=== PATIENT | female | born 1995 | race Caucasian/White ===

== ENCOUNTER 2017-10-14 23:01 | Emergency (ER) | payer MEDICAID, SELFPAY ==
[2017-10-14 23:02] VITALS: BP 119/70; PULSE 88; RESP 17; TEMP 36.4; O2SAT 99; BMI 17.3
--- NOTE | 2017-10-15 00:26 | ED.VISSUMM ---
- ER Visit Summary Date of Service: 10/15/17 Chief Complaint: Missed menses History of Present Illness: The patient is a sexually active 22 F states that her menstrual cycles are usually regular, but she missed her cycle 2 weeks ago and wants to make sure she is not . She has done for urine test at home that were all negative, but is concerned because false negative urine test runs in the family. She is having a little queasiness in her abdomen but no pelvic pain. She drinks water frequently and urinates appropriately, which is somewhat frequently for her. She denies any dysuria or hematuria, no fevers or nausea or vomiting. No low back pain. She is a . She also states she has been having her control switch to multiple different types lately. Physical Examination: Well-appearing in no acute distress with normal vital signs. Abdomen soft nontender nondistended with normal bowel sounds present. No CVA tenderness. No tachycardia. Test Results: Serum test negative Emergency Department Course and Treatment: Patient is reassured as she is not . Encouraged to follow-up with her residence counselor. Symptoms may be related to her recent oral contraceptive pill changes. 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 It may contain incorrect words, spelling, and punctuation that were not noted in review of the chart prior to signing ED Disposition - Plan for ED Patient: Disposition: Home or Assisted Living Chief Complaint: Instructions: ED Amenorrhea Referrals: Nirmala Hyde MD [Primary Care Provider] - Tyler Fraser MD [STAFF PHYSICIAN] - As Needed
[2017-10-15 01:23] LABS: Pregnancy, Serum, hCG Quali. NEGATIVE Negative (0-9 Nonpreg)
== END 2017-10-15 01:56 | disposition home or self-care (01) ==
PROVIDERS: Emergency Provider Emergency Medicine; Family Provider Pediatrics; PCP Pediatrics
DX: N91.2 Amenorrhea, unspecified (principal); R11.0 Nausea; Z72.0 Tobacco use
CPT/HCPCS: 84703; 99282

== ENCOUNTER 2017-10-18 23:07 | Emergency (ER) | payer MEDICAID, SELFPAY ==
[2017-10-18 23:10] VITALS: BP 133/88; PULSE 92; RESP 15; TEMP 37; O2SAT 96; BMI 18.7
--- NOTE | 2017-10-18 23:19 | ED.VISSUMM ---
- ER Visit Summary Date of Service: 10/18/17 Chief Complaint: Abdominal pain History of Present Illness: The patient is a 22 F who has had abdominal pain that started today. She describes sharp pains in her epigastric area. It radiates to her back. She said associated nausea without vomiting. Denies any diarrhea or constipation. No dysuria currently but she did have this 2 weeks ago. No fevers. She has been trying ibuprofen at home without any relief. Denies any previous abdominal surgeries. Physical Examination: Vital signs reviewed. HEENT exam unremarkable. Heart is regular rate and rhythm without murmurs. Lungs are clear to auscultation. Abdomen is soft with tenderness in the epigastric area. There is no guarding or rebound tenderness. Extremities reveal no edema. Skin exam normal. Neurologic exam normal. Test Results: Laboratory studies are all normal. Urinalysis normal. test from a couple of days ago was also negative Emergency Department Course and Treatment: Patient received a GI cocktail which did not help her pain. Patient will be treated with morphine. She likely has some gastritis. No evidence of any gallbladder or pancreatic disease. Patient will be discharged with Prilosec to take at home. She will follow-up with her PCP Treatment Plan: [] Disposition: Discharge Impression: Epigastric abdominal pain This note was generated with [employer] dictation software. It may contain incorrect words, spelling, and punctuation that were not noted in review of the chart prior to signing ED Disposition - Plan for ED Patient: Chief Complaint: Abd Pain Referrals: Nirmala Hyde MD [Primary Care Provider] -
--- NOTE | 2017-10-18 23:37 | NURSING ---
DR. GUTIERREZ MADE AWARE BY THIS NURSE PATIENT STATING THAT HER LEFT UPPER CHEST IS SORE WHEN PUSHES ON IT.
[2017-10-18 23:40] LABS: Bacteria 0 SEEN /hpf (None Seen); Mucous, Urine 0 SEEN /hpf (<or=2+); Red Blood Cells-Urine 0 SEEN /hpf (0-5); White Blood Cells 0 SEEN /hpf (0-5)
[2017-10-18 23:43] LABS: Absolute Lymphocyte Count 3.02 X10^3/ul (0.83-4.51); Absolute Neutrophil Count 6.6 X10^3/uL (2.0-7.7); Basophil# 0.05 X10^3/uL; Basophil% 0.5 % (0-1); Eosinophil# 0.15 X10^3/uL; Eosinophils% 1.4 % (0-5); Hematocrit 40.1 % (37-47); Hemoglobin 13.7 g/dl (12.0-15.0); Lymphocyte # 3.02 X10^3/ul (4.0); Lymphocyte % 27.8 % (19-41); Mean Corp Hgb Conc 34.2 g/gl (32-36); Mean Corpuscular Hgb 30.6 pg (27.0-32.0); Mean Corpuscular Volume 89.7 fL (81-99); Mean Platelet Vol. 9.9 fl (6.2-12.0); Monocyte# 1.02 X10^3/uL; Monocyte% 9.4 % (0-10); Neutrophil % 60.6 % (47-70); POSITIVE COUNT NO; POSITIVE DIFFERENTIAL NO; POSITIVE MORPHOLOGY NO; Platelet Count 256 K/mm3 (150-450); RBC Distribution Width CV 11.9 % (11.6-14.6); RBC Distribution Width SD 38.1 fl (35.1-43.9); Red Blood Count 4.47 M/mm3 (4.2-5.4); White Blood Count 10.9 K/mm3 (4.4-11.0)
[2017-10-18 23:52] LABS: Color, Urine Straw (Yellow); Glucose, Dipstick Normal (Normal); Ketone-Dipstick Negative (Negative); Leukocyte Esterase-Dipstick Negative /ul (Negative); Nitrite-Dipstick Negative (Negative); Occult Blood-Urine 10 /ul (Negative); Protein-Dipstick Negative (Negative); Specific Gravity, Urine 1.005 (1.002-1.030); Urine Bilirubin Dipstick Negative (Negative); Urine Clarity Clear (Clear); Urine Urobilinogen Normal (Normal)
[2017-10-19 00:02] LABS: Squamous Epithelial Cells - UA 0-5 SEEN /hpf (5-10)
[2017-10-19 00:08] LABS: ALB/GLOB Ratio 1.1 RATIO (0.9-2.4); AST(SGOT) 13 U/L (15-37); Alanine Aminotransfer ALT/SGPT 14 U/L (13-56); Albumin, Serum 3.9 g/dL (3.2-5.0); Alkaline Phosphatase 60 U/L (45-117); Anion Gap 10 (5-15); BUN 9 mg/dL (7-18); BUN/Creat Ratio 10.9 RATIO (10-20); Calcium,Total 8.8 mg/dL (8.5-10.1); Chloride 105 mmol/L (98-107); Creatinine, Serum 0.83 mg/dL (0.55-1.02); EST Glomerular Filtration Rate 93 mL/min (>60); Est Glom Filt Rate - Afr Amer 113 mL/min (>60); Globulin 3.6 g/dL (2.2-4.2); Glucose 87 mg/dL (74-106); Lipase 259 U/L (73-393); Potassium 3.7 mmol/L (3.5-5.1); Protein, Total 7.5 g/dL (6.4-8.2); Sodium Level 142 mmol/L (136-145)
--- NOTE | 2017-10-19 00:15 | ED.DEP ---
ED Disposition - Plan for ED Patient: Disposition: Home or Assisted Living Chief Complaint: Abd Pain Instructions: ED Abdominal Pain Unkn Cause Prescriptions: Omeprazole [Prilosec] 20 mg PO DAILY #30 cap Referrals: Nirmala Hyde MD [Primary Care Provider] -
[2017-10-19 00:29] VITALS: BP 118/77; PULSE 86; RESP 14; O2SAT 98
--- NOTE | 2017-10-19 00:29 | ED.RN ---
PT GIVEN WRITTEN AND VERBAL DISCHARGE INSTRUCTIONS AND HOME GOING PRESCRIPTIONS. PT VERBALIZES UNDERSTANDING AND DENIES ANY FURTHER QUESTIONS. PT AMBULATORY HOME WITH FRIEND. IV D/C AND COVERED WITH 2X2 GAUZE DRESSING AND PAPER TAPE.
== END 2017-10-19 00:32 | disposition home or self-care (01) ==
PROVIDERS: Emergency Provider Emergency Medicine; Family Provider Pediatrics; PCP Pediatrics
DX: R10.13 Epigastric pain (principal); R11.0 Nausea; Z72.0 Tobacco use
CPT/HCPCS: 80053; 81001; 83690; 85025; 99283; A4216

== ENCOUNTER → 2017-10-21 12:53 | Outpatient (CLI) | payer MEDICAID, SELFPAY ==
[2017-10-21 17:48] LABS: Chlamydia Trachomatis by PCR Negative (Negative); Neisserai gonorrhoeae by PCR Negative (Negative); Probe Check PASS; Sample Adequacy Control PASS; Specimen Processing Control PASS
== END ==
PROVIDERS: Family Provider Pediatrics; PCP Pediatrics; Visit Provider Nurse Practitioner Pediatrics
DX: R10.9 Unspecified abdominal pain (principal)
CPT/HCPCS: 87491; 87591

== ENCOUNTER 2017-11-18 22:41 | Emergency (ER) | payer MEDICAID, SELFPAY ==
[2017-11-18 22:41] VITALS: BP 115/79; PULSE 72; RESP 16; TEMP 36.6; O2SAT 98; BMI 25.3
--- NOTE | 2017-11-18 23:09 | ED.VISSUMM ---
- ER Visit Summary Date of Service: 11/18/17 Chief Complaint: Right upper extremity pain History of Present Illness: The patient is a 22 F worsening right upper extremity pain over 2 days. Pain to the neck down the back of her arm. She does have tingling. States she had an injury to his shoulder 2 years ago followed by her PCP stopped. States she went through physical therapy. Been using Tylenol. 2 days ago was lifting 20 pound boxes and cleaning when symptoms started. She does sleep on the right side of her neck. There is no falls or direct injuries at that time. She is right-hand dominant. No history of gastric ulcers or acute kidney injury. Physical Examination: General: Alert and oriented ?3, no acute distress HEENT: Normocephalic, atraumatic. Moist mucosa membranes Neck: supple, no midline tenderness. Spurling's negative. Cardiovascular: Regular rate and rhythm, no murmurs Respiratory: Normal breath sounds, symmetric, no distress Abdomen: Soft, nontender, nondistended Extremities: Nontender, no edema, pulses intact ?4 Neuro: no focal neurological deficits. Test Results: [] Emergency Department Course and Treatment: Patient history exam concerns for C7 cervical radiculopathy. No weakness. She placed on Motrin. She will need outpatient workup. She is given a work note. Treatment Plan: [] Disposition: Discharge Impression: Right C7 cervical radiculopathy This note was generated with [email or web address] dictation software. It may contain incorrect words, spelling, and punctuation that were not noted in review of the chart prior to signing ED Disposition - Plan for ED Patient: Disposition: Home or Assisted Living Chief Complaint: Upper Extremity Injury Diagnosis: Right C7 cervical radiculopathy Instructions: ED Cervical Radiculopathy Prescriptions: Ibuprofen 600 mg PO 4X/DAY #20 tablet Referrals: Nirmala Hyde MD [Primary Care Provider] - 3-5 Days Additional Instructions: Decreased sensation C7 dermatome on right.
[2017-11-18] MEDS: Ibuprofen 600 MG Tablet PO (23:40)
[2017-11-18 23:46] VITALS: PULSE 66; RESP 14; O2SAT 100
== END 2017-11-18 23:46 | disposition home or self-care (01) ==
LOC: ED 23:16
PROVIDERS: Emergency Provider Emergency Medicine; Family Provider Pediatrics; PCP Pediatrics
DX: M54.12 Radiculopathy, cervical region (principal); Z72.0 Tobacco use
CPT/HCPCS: 99283

== ENCOUNTER → 2017-11-27 14:36 | Outpatient (CLI) | payer MEDICAID, SELFPAY ==
--- NOTE | 2017-11-27 14:56 | RAD_ITS ---
STUDY: X-RAY - RIGHT SHOULDER REASON FOR EXAM: Female, 22 years old. 2 week history of pain. TECHNIQUE: 4 view(s) of the shoulder. COMPARISON: None. FINDINGS: Normal glenohumeral articulation. Normal acromioclavicular joint. Normal acromion. Normal humeral head and visualized proximal humerus. The soft tissue structures are unremarkable. Normal visualized pulmonary apex. RAD/Shoulder min 2 Views IMPRESSION: Normal x-ray examination of the shoulder. Electronically Signed: Mehul Meeks MD at 15:12 EDT Tel [phone], Service support ,
== END ==
PROVIDERS: Family Provider Pediatrics; PCP Pediatrics; Visit Provider Pediatrics
DX: M25.511 Pain in right shoulder (principal)
CPT/HCPCS: 73030

== ENCOUNTER → 2018-01-20 13:41 | Outpatient (CLI) | payer MEDICAID, SELFPAY ==
--- NOTE | 2018-01-20 13:45 | RAD_ITS ---
STUDY: X-RAY - ABDOMEN/PELVIS REASON FOR EXAM: Female, 22 years old. Lower abdominal pain. TECHNIQUE: Single AP view of the abdomen / pelvis. COMPARISON: None. FINDINGS: Normal visualized lung bases. There is an abundance of fecal material throughout the colon. The visualized liver, spleen and kidneys are grossly normal in size and morphology. Normal soft tissue structures. Normal visualized osseous structures. RAD/Abdomen Single View IMPRESSION: Large amount of fecal material is seen in the colon. Electronically Signed: Mehul Meeks MD at 14:01 EDT Tel [phone], Service support ,
== END ==
PROVIDERS: Family Provider Pediatrics; PCP Pediatrics; Visit Provider Nurse Practitioner
DX: R10.9 Unspecified abdominal pain (principal)
CPT/HCPCS: 74018

== ENCOUNTER 2018-05-31 13:10 | Emergency (ER) | payer MEDICAID, SELFPAY ==
[2018-05-31 13:11] VITALS: BP 124/74; PULSE 79; RESP 16; TEMP 36.4; O2SAT 100; BMI 17.9
--- NOTE | 2018-05-31 13:28 | ED.VISSUMM ---
- ER Visit Summary Date of Service: 05/31/18 Chief Complaint: [] Nasal congestion harsh cough for a few days History of Present Illness: The patient is a 22 F [] patient denies a past history indicates she has had nasal congestion harsh cough for a few days she was seen by her family doctor presence of the for the cough that she woke today with significant nasal congestion is for evaluation conditions denies being Physical Examination: [] Blood pressure is 124/74 pulse ox 100% she is resting comforting the bed no distress, her nose is quite congested general, no distress resting comfortably HEENT is generally unremarkable for the copious rhinorrhea the throat is slightly red there is postnasal drainage The neck is supple no adenopathy Cardiovascular, regular rate and rhythm Lungs, clear bilateral Abdomen, soft nontender Extremities, no clubbing cyanosis or edema Neurologic, awake alert answering questions appropriately moving all 4 extremities Test Results: [] Emergency Department Course and Treatment: [] Clinically she has a URI she is resting comforting the bed she indicates nothing she does at home can make her nose clear at this time she is provided with Afrin nasal spray, she will be discharged on Flonase nasal spray Proventil inhaler and follow-up with her physician she is comfortable with this plan Treatment Plan: [] Disposition: [] Home stable Impression: [] URI with nasal congestion This note was generated with [employer] dictation software. It may contain incorrect words, spelling, and punctuation that were not noted in review of the chart prior to signing ED Disposition - Plan for ED Patient: Chief Complaint: Shortness of Breath Referrals: Nirmala Hyde MD [Primary Care Provider] -
--- NOTE | 2018-05-31 13:30 | ED.DEP ---
ED Disposition - Plan for ED Patient: Chief Complaint: Shortness of Breath Instructions: ED Upper Resp Infec No Abx Tx Prescriptions: Albuterol Inhaler [Ventolin Hfa] 1 - 2 puff INHALATION Q4H PRN PRN #1 inhaler PRN Reason: Wheezing Fluticasone Propionate [Flonase Allergy Relief] 15.8 ml NS DAILY #1 spray.susp Referrals: Nirmala Hyde MD [Primary Care Provider] -
[2018-05-31] MEDS: Oxymetazoline 0.05% 1 SPRAY SPRAY.BTL 2 SPRAY NASAL (13:46)
== END 2018-05-31 13:50 | disposition home or self-care (01) ==
PROVIDERS: Emergency Provider Emergency Medicine; Family Provider Pediatrics; PCP Pediatrics
DX: J06.9 Acute upper respiratory infection, unspecified (principal); R09.81 Nasal congestion; R05 Cough
CPT/HCPCS: 99281

== ENCOUNTER 2018-10-09 05:17 | Emergency (ER) | payer MEDICAID, SELFPAY ==
[2018-10-09 05:18] VITALS: BP 105/75; PULSE 68; RESP 16; TEMP 36.2; O2SAT 99; BMI 19.2
--- NOTE | 2018-10-09 05:39 | ED.DCSUM_ITS ---
- ER Visit Summary Date of Service: 10/09/18 Chief Complaint: Shortness of breath History of Present Illness: The patient is a 23 F who is an asthmatic. She tells me that this morning she woke from sleep and felt extremely hot and short of breath. She went outside it seemed to help. She takes Pro Air for her asthma. She states she uses 3-4 times per week. It is currently out. She states that she has not made an appointment to see her doctor as it is difficult to get an appointment that works with her work schedule. She has a stress smoker. She also states that she has a sore throat. Physical Examination: Afebrile vital signs are stable Gen: Well-nourished well-developed Head: Normocephalic atraumatic Eyes: Perrl EOMI ENT: TMs clear no rhinorrhea moist mucous membranes Neck: Supple no lymphadenopathy no JVD nontender CVS: Regular rate rhythm no murmurs normal S1-S2 Respiratory: No distress clear to auscultation bilaterally diminished bilaterally chest nontender Abdomen: Soft nontender nondistended normal bowel sounds no masses Back: Nontender Extremity: Nontender no edema Skin: Normal color no rash Neuro: alert orientated ?3 CN II-XII intact normal strength sensation reflexes gait cerebellar Psych: Normal affect normal mood Emergency Department Course and Treatment: Patient received a DuoNeb as well as Decadron. I will write a prescription for a spacer. Patient needs to follow-up with her doctor and discuss asthma therapy as she is using her inhaler 3-4 times per week. Impression: 1. Asthma 2. Medication refill This note was generated with [employer] dictation software. It may contain incorrect words, spelling, and punctuation that were not noted in review of the chart prior to signing ED Disposition - Plan for ED Patient: Disposition: Home or Assisted Living Instructions: ED Inhaler Use Prescriptions: Albuterol Inhaler [Ventolin Hfa] 2 puff INHALATION Q4H PRN PRN #1 inhaler PRN Reason: Wheezing Referrals: Nirmala Hyde MD [Primary Care Provider] - As soon as possible
[2018-10-09 05:45] VITALS: PULSE 62; RESP 16
[2018-10-09] MEDS: Ipratropium/Albuterol Sulfate 3 ML AMPUL.NEB INHALATION (05:45)
[2018-10-09 06:09] VITALS: RESP 14
== END 2018-10-09 06:09 | disposition home or self-care (01) ==
PROVIDERS: Emergency Provider Emergency Medicine; Family Provider Pediatrics; PCP Pediatrics
DX: J45.909 Unspecified asthma, uncomplicated (principal); Z76.0 Encounter for issue of repeat prescription; F17.200 Nicotine dependence, unspecified, uncomplicated
CPT/HCPCS: 94640; 99283